=== PATIENT | female | born 1985 | race Caucasian/White ===

== ENCOUNTER 2017-04-06 08:14 | Emergency (ER) | payer MEDICAID, OTHER ==
[~2017-04-06] VITALS: Ht 165.1 cm; Wt 90.3 kg
[2017-04-06 08:16] VITALS: BP 144/84
--- NOTE | 2017-04-06 08:30 | NUR ---
31/F BIB FRIEND FOR MEDICATION REFILL FROM [facility] ; LITHIUM 300 MG PO QID .PT RAN OUT OF THIS MED 5 DAYS. HX OF BIPOLAR, BODERLINE PERSONALITY DISORDER, DEPRESSION, SUBSTANCE ABUSE RECOVERING, MIGRAINE ,ASTHMA. PATIENT DENIES N/V/D; SKIN IS SMALL RASHES TO BOTH ARMS AT THIS TIME. AAOX4 WITH EVEN AND STEADY GAIT; LUNGS CLEAR BL; HR EVEN AND REGULAR; PT DENIES ANY FEVER, CP, SOB, OR COUGH AT THIS TIME; PATIENT STATES PAIN OF 0/10 AT THIS TIME; VSS; PATIENT POSITIONED FOR COMFORT; HOB ELEVATED; BEDRAILS UP X2; BED DOWN. ER MD MADE AWARE OF PT STATUS.
--- NOTE | 2017-04-06 08:30 | NUR ---
Note undone in EDM - 04/06/17 at 0904 by [email or web address] 31/ BIB FRIEND C/O FOR MEDICATION REFILL FROM [facility] ; LITHIUM 300 MG PO QID .PT RAN OUT OF THIS MED 5 DAYS. HX OF BIPOLAR, BODERLINE PERSONALITY DISORDER, DEPRESSION, SUBSTANCE ABUSE RECOVERING, MIGRAINE ,ASTHMA. PATIENT DENIES N/V/D; SKIN IS PINK/WARM/DRY; AAOX4 WITH EVEN AND STEADY GAIT; LUNGS CLEAR BL; HR EVEN AND REGULAR; PT DENIES ANY FEVER, CP, SOB, OR COUGH AT THIS TIME; PATIENT STATES PAIN OF 0/10 AT THIS TIME; VSS; PATIENT POSITIONED FOR COMFORT; HOB ELEVATED; BEDRAILS UP X2; BED DOWN. ER MD MADE AWARE OF PT STATUS.
[2017-04-06] MEDS ORDERED: LITHIUM CARBONATE 300 MG TAB PO SCH ×2 (11:00→11:26)
--- NOTE | 2017-04-06 11:15 | NUR ---
CALLED PHARMACY FOR MEDICINE
[2017-04-06] MEDS ORDERED: LITHIUM CARBONATE 300 MG TAB PO ONE (11:20)
--- NOTE | 2017-04-06 11:20 | NUR ---
Patient appears to be resting comfortably in bed. Vital Signs within normal limits. Respirations even and unlabored.WILL CONTINUE TO MONITOR
[2017-04-06 12:05] VITALS: BP 141/71
--- NOTE | 2017-04-06 12:05 | NUR ---
Patient discharged with v/s stable. Written and verbal after care instructions given and explained. Patient verbalized understanding. Ambulatory with steady gait. All questions addressed prior to discharge. Advised to follow up with PMD.
== END 2017-04-06 12:05 | disposition home or self-care (01) ==
LOC: MED 08:14
DX: F31.9 Bipolar disorder, unspecified (principal); R21 Rash and other nonspecific skin eruption; J45.909 Unspecified asthma, uncomplicated; Z76.0 Encounter for issue of repeat prescription; Z90.49 Acquired absence of other specified parts of digestive tract; Z98.890 Other specified postprocedural states
CPT/HCPCS: 99283

== ENCOUNTER 2018-11-03 09:24 | Emergency (ER) | payer MEDICAID ==
[~2018-11-03] VITALS: Ht 167.6 cm; Wt 100.0 kg
[2018-11-03 09:34] VITALS: BP 126/61
--- NOTE | 2018-11-03 09:37 | NUR ---
PT AMBULATES TO BED 8
--- NOTE | 2018-11-03 09:40 | NUR ---
33 YO F BIB SELF; AMBULATORY W/ STEADY GATE. N/V/D SINCE LAST NIGHT; SKIN IS INTACT, PINK/WARM/DRY; AAOX4, PERRL, WITH EVEN AND STEADY GAIT; LUNGS CLEAR BL, BREATHING UNLABORED; HR EVEN AND REGULAR, BL PERIPHERAL PULSES PRESENT; BS ACTIVE X4, NO TENDERNESS TO PALPATION, NO HEPATOSPLENOMEGALLY PALPATED, RESONANT TO PERCUSSION; PT DENIES ANY FEVER, CP, SOB, OR COUGH AT THIS TIME; PT STATES 9/10 PAIN AT THIS TIME; VSS; PATIENT POSITIONED FOR COMFORT; HOB ELEVATED; BEDRAILS UP X1; BED DOWN. ER MADE AWARE OF PT STATUS. [facility] HX: DENIES RX: DENIES
[2018-11-03 10:03] VITALS: BP 124/62
--- NOTE | 2018-11-03 10:05 | NUR ---
Patient discharged with v/s stable. Written and verbal after care instructions given and explained. Patient alert, oriented and verbalized understanding of instructions. Ambulatory with steady gait. All questions addressed prior to discharge. ID band removed. Patient advised to follow up with PMD. Rx of CIPRO 500MG given. Patient educated on indication of medication including possible reaction and side effects. Opportunity to ask questions provided and answered.
== END 2018-11-03 10:05 | disposition home or self-care (01) ==
LOC: MED 09:24
DX: N30.00 Acute cystitis without hematuria (principal); J45.909 Unspecified asthma, uncomplicated; Z90.49 Acquired absence of other specified parts of digestive tract
CPT/HCPCS: 81002; 81025; 99283

== ENCOUNTER 2018-11-15 08:22 | Emergency (ER) | payer MEDICAID ==
[~2018-11-15] VITALS: Ht 165.1 cm; Wt 100.2 kg
[2018-11-15 08:35] VITALS: BP 100/76
--- NOTE | 2018-11-15 08:39 | NUR ---
PT AMBULATES TO BED 7
--- NOTE | 2018-11-15 08:54 | NUR ---
Patient being evaluated by physician at bedside.
--- NOTE | 2018-11-15 08:55 | NUR ---
33/ F BIB SELF, PRESENTS TO ED WITH C/O BILATERAL UPPER ADBDOMINAL, N/V/D X2 DAYS. PT STATES THAT SHE HAS BEEN SEEN BY HER PRIMARY AND WILL SEE A SPECIALIST NEXT WEEK, BUT PAIN HAS WORSNED THE PAST TWO DAYS . SKIN IS PINK/WARM/DRY; AAOX4 WITH EVEN AND STEADY GAIT; LUNGS CLEAR BL; HR EVEN AND REGULAR; PT DENIES ANY FEVER, CP, SOB, OR COUGH AT THIS TIME. PAIN IS 10/10 UNPROVOKED, STABBING AND CONSTANT. PAIN RADIATES TO BACK AND TO HER PELVIS. PATIENT POSITIONED FOR COMFORT; HOB ELEVATED; BEDRAILS UP X2; BED DOWN. ER MD MADE AWARE OF PT STATUS.
[2018-11-15] MEDS ORDERED: NACL 0.9% 500 ML IV ONE (08:56)
[2018-11-15] MEDS ORDERED: ONDANSETRON 4 MG/2 ML VIAL IVP ONE (09:00)
[2018-11-15] MEDS ORDERED: KETOROLAC 30 MG/ML VIAL IVP ONE (09:00)
[2018-11-15] MEDS ORDERED: PANTOPRAZOLE 40 MG INJ VIAL IVP ONE (09:05)
[2018-11-15 09:31] LABS: BASOPHILS % (AUTO) 0.2 % (0.0-2.0); EOSINOPHILS % (AUTO) 0.3 % (0.0-4.0); HEMATOCRIT 39.3 % (36-48); HEMOGLOBIN 12.8 g/dL (12.0-16.0); LYMPHOCYTES # (AUTO) 0.8 K/uL (2.5-16.5); LYMPHOCYTES % (AUTO) 8.2 % (20.5-51.1); MEAN CORPUSCULAR HEMOGLOBIN 29 pg (27-31); MEAN CORPUSCULAR HGB CONC 33 g/dL (33-37); MEAN CORPUSCULAR VOLUME 88.9 fL (80-94); MONOCYTES # (AUTO) 0.5 K/uL (0.8-1.0); MONOCYTES % (AUTO) 5.1 % (1.7-9.3); NEUTROPHILS # (AUTO) 8.6 K/uL (1.8-7.7); NEUTROPHILS % (AUTO) 86.2 % (42.2-75.2); PLATELET COUNT (AUTO) 149 K/uL (140-450); RED BLOOD CELL COUNT(AUTO) 4.41 MIL/uL (4.20-5.40); RED CELL DISTRIBUTION WIDTH 13.3 % (11.6-13.7); WHITE BLOOD COUNT (AUTO) 9.9 K/uL (4.8-10.8)
[2018-11-15 09:40] LABS: ANION GAP 10.6 (8-16); CARBON DIOXIDE 26.1 mmol/L (21-32); CREATININE 0.6 mg/dL (0.6-1.3); POTASSIUM 3.7 mmol/L (3.5-5.1)
[2018-11-15 09:46] LABS: ALBUMIN 3.3 g/dL (3.4-5.0); TOTAL BILIRUBIN 0.4 mg/dL (0.0-1.0)
[2018-11-15 10:16] VITALS: BP 105/78
--- NOTE | 2018-11-15 10:16 | NUR ---
Patient discharged with v/s stable. Written and verbal after care instructions given and explained. Patient alert, oriented and verbalized understanding of instructions. Ambulatory with steady gait. All questions addressed prior to discharge. ID band removed. Patient advised to follow up with PMD. Rx of PROTONIX, ZOFRAN given. Patient educated on indication of medication including possible reaction and side effects. Opportunity to ask questions provided and answered.
== END 2018-11-15 10:10 | disposition home or self-care (01) ==
LOC: MED 08:22
DX: A08.4 Viral intestinal infection, unspecified (principal); M54.9 Dorsalgia, unspecified; Z90.49 Acquired absence of other specified parts of digestive tract
CPT/HCPCS: 36415; 80053; 81002; 81025; 83690; 85025; 96361; 96374; 96375; 99283; C9113; J1885; J2405; J7030

== ENCOUNTER 2019-08-02 10:20 | Emergency (ER) | payer SELFPAY ==
[~2019-08-02] VITALS: Ht 167.6 cm; Wt 108.9 kg
[2019-08-02 10:32] VITALS: BP 105/70
--- NOTE | 2019-08-02 10:32 | NUR ---
C/O EPIGASTRIC PAIN WITH N/V/D X 4 DAYS. 4 EPISODES OF EMESIS, DENIES BLOOD. PAIN 9/10. BOWEL SOUNDS ACTIVE IN ALL 4 QUADRANTS. ABDOMEN SOFT AND ROUND. AA0X4. BED IS DOWN, LOCKED, BED RAIL X1, ERMD TO SEE PT. PMH- DENIES
--- NOTE | 2019-08-02 10:47 | NUR ---
dr hughes at bedside
[2019-08-02] MEDS ORDERED: NACL 0.9% 1,000 ML IV SCH (10:51)
[2019-08-02] MEDS ORDERED: KETOROLAC 15 MG/ML VIAL IVP ONE (10:55)
[2019-08-02] MEDS ORDERED: FAMOTIDINE 20 MG/2 ML VIAL IVP ONE (10:55)
[2019-08-02] MEDS ORDERED: ONDANSETRON 4 MG/2 ML VIAL IVP ONE (10:55)
--- NOTE | 2019-08-02 11:35 | NUR ---
LAB AT BEDSIDE
--- NOTE | 2019-08-02 11:44 | NUR ---
IV AND MEDICATIONS INSERTED BY SUSAN GARCIA
[2019-08-02 11:53] LABS: BASOPHILS % (AUTO) 0.4 % (0.0-2.0); HEMATOCRIT 41.1 % (36-48); HEMOGLOBIN 13.8 g/dL (12.0-16.0); LYMPHOCYTES # (AUTO) 1.7 K/uL (2.5-16.5); LYMPHOCYTES % (AUTO) 21.5 % (20.5-51.1); MEAN CORPUSCULAR HEMOGLOBIN 29 pg (27-31); MEAN CORPUSCULAR HGB CONC 34 g/dL (33-37); MONOCYTES # (AUTO) 0.4 K/uL (0.8-1.0); MONOCYTES % (AUTO) 4.9 % (1.7-9.3); NEUTROPHILS # (AUTO) 5.7 K/uL (1.8-7.7); NEUTROPHILS % (AUTO) 73.2 % (42.2-75.2); PLATELET COUNT (AUTO) 213 K/uL (140-450); RED BLOOD CELL COUNT(AUTO) 4.73 MIL/uL (4.20-5.40); RED CELL DISTRIBUTION WIDTH 13.6 % (11.6-13.7); WHITE BLOOD COUNT (AUTO) 7.8 K/uL (4.8-10.8)
[2019-08-02 12:04] LABS: ANION GAP 13.5 (8-16); CARBON DIOXIDE 26.4 mmol/L (21-32); CREATININE 0.6 mg/dL (0.6-1.3); POTASSIUM 3.9 mmol/L (3.5-5.1)
[2019-08-02 12:09] LABS: ALBUMIN 3.8 g/dL (3.4-5.0); TOTAL BILIRUBIN 0.4 mg/dL (0.0-1.0)
--- NOTE | 2019-08-02 12:39 | NUR ---
PT SLEEPING IN BED. VSS AT THIS TIME. AA0X4.
[2019-08-02 12:41] LABS: APPEARANCE,URINE CLEAR (CLEAR); BILIRUBIN,URINE 1+ (NEGATIVE); BLOOD, URINE TRACE-I (NEGATIVE); COLOR,URINE YELLOW (YELLOW); LEUKOCYTE ESTERASE ,URINE NEGATIVE (NEGATIVE); NITRITE, URINE NEGATIVE (NEGATIVE); UGLUCOSE NEGATIVE (NEGATIVE)
[2019-08-02 13:47] VITALS: BP 106/66
--- NOTE | 2019-08-02 13:47 | NUR ---
Patient discharged with v/s stable. Written and verbal after care instructions given and explained. Patient alert, oriented and verbalized understanding of instructions. Ambulatory with steady gait. All questions addressed prior to discharge. ID band removed. Patient advised to follow up with PMD. Rx of zofran and pepcid given. Patient educated on indication of medication including possible reaction and side effects. Opportunity to ask questions provided and answered. pt given copy of lab results instructed to follow up with [facility]
== END 2019-08-02 13:47 | disposition home or self-care (01) ==
LOC: MED 10:20
DX: K29.70 Gastritis, unspecified, without bleeding (principal); Z90.49 Acquired absence of other specified parts of digestive tract; Z98.890 Other specified postprocedural states
CPT/HCPCS: 36415; 76705; 80053; 81003; 81025; 83690; 85025; 96361; 96374; 96375; 99284; J1885; J2405; J3490; J7030; Q0092

== ENCOUNTER 2019-10-23 06:26 | Emergency (ER) | payer MEDICAID ==
[~2019-10-23] VITALS: Ht 167.6 cm; Wt 89.8 kg
[2019-10-23 06:28] VITALS: BP 126/77
--- NOTE | 2019-10-23 06:28 | NUR ---
TO BED # 09 AMBULATORY
--- NOTE | 2019-10-23 06:35 | NUR ---
pATIENT RECIEVED AAOX3, SKIN W/D TO TOUCH , CHIEF C/O N/V SINCE YESTERDAY, PT STATES SHE IS BURBING ALOT (IT HAS A METAL TASTE) AND PASSING GAS, "i FEEL REAL BLOATED. LAST TIME VOMITTING WAS AN HOUR AGO. PATIENT PLACED IN A GOWN. URINE COLLECTED. PENDING MD ZAVALETA.
[2019-10-23] MEDS ORDERED: NACL 0.9% 1,000 ML IV SCH (06:54)
[2019-10-23] MEDS ORDERED: ONDANSETRON 4 MG/2 ML VIAL IVP ONE (06:55)
--- NOTE | 2019-10-23 07:12 | NUR ---
REPORT TO AM RADHA WHITE/ YOLI.
--- NOTE | 2019-10-23 07:13 | NUR ---
RECEIVED REPORTED FROM TL GARCIA.
[2019-10-23 07:25] LABS: BASOPHILS % (AUTO) 0.3 % (0.0-2.0); HEMATOCRIT 36.1 % (36-48); HEMOGLOBIN 12.1 g/dL (12.0-16.0); LYMPHOCYTES # (AUTO) 2.8 K/uL (2.5-16.5); LYMPHOCYTES % (AUTO) 38.5 % (20.5-51.1); MEAN CORPUSCULAR HEMOGLOBIN 30 pg (27-31); MEAN CORPUSCULAR HGB CONC 34 g/dL (33-37); MEAN CORPUSCULAR VOLUME 88.7 fL (80-94); MONOCYTES # (AUTO) 0.5 K/uL (0.8-1.0); MONOCYTES % (AUTO) 7.4 % (1.7-9.3); NEUTROPHILS % (AUTO) 53.8 % (42.2-75.2); PLATELET COUNT (AUTO) 193 K/uL (140-450); RED BLOOD CELL COUNT(AUTO) 4.07 MIL/uL (4.20-5.40); RED CELL DISTRIBUTION WIDTH 13.5 % (11.6-13.7); WHITE BLOOD COUNT (AUTO) 7.4 K/uL (4.8-10.8)
[2019-10-23 07:27] LABS: APPEARANCE,URINE HAZY (CLEAR); BILIRUBIN,URINE NEGATIVE (NEGATIVE); BLOOD, URINE 3+ (NEGATIVE); COLOR,URINE YELLOW (YELLOW); LEUKOCYTE ESTERASE ,URINE NEGATIVE (NEGATIVE); NITRITE, URINE NEGATIVE (NEGATIVE); UGLUCOSE NEGATIVE (NEGATIVE)
[2019-10-23 07:49] LABS: RBC,URINE 20-50 /HPF (0-5)
[2019-10-23 07:50] LABS: WBC,URINE 0-5 /HPF (0-5)
[2019-10-23 07:52] LABS: ALBUMIN 3.3 g/dL (3.4-5.0); ANION GAP 10.2 (8-16); CARBON DIOXIDE 27.8 mmol/L (21-32); CREATININE 0.6 mg/dL (0.6-1.3); TOTAL BILIRUBIN 0.1 mg/dL (0.0-1.0)
--- NOTE | 2019-10-23 08:27 | NUR ---
pt taken to ct.
[2019-10-23 10:39] VITALS: BP 118/68
--- NOTE | 2019-10-23 10:39 | NUR ---
Patient discharged with v/s stable. Written and verbal after care instructions given and explained. Patient alert, oriented and verbalized understanding of instructions. Ambulatory with steady gait. All questions addressed prior to discharge. ID band removed. Patient advised to follow up with PMD. Rx of ZOFRAN & NORCO given. Patient educated on indication of medication including possible reaction and side effects. Opportunity to ask questions provided and answered.
== END 2019-10-23 10:39 | disposition home or self-care (01) ==
LOC: MED 06:26
DX: R10.9 Unspecified abdominal pain (principal); R11.2 Nausea with vomiting, unspecified; Z90.49 Acquired absence of other specified parts of digestive tract
CPT/HCPCS: 36415; 74177; 80053; 81001; 83690; 84703; 85025; 87086; 96361; 96374; 99284; J2405; J7030; Q9967

== ENCOUNTER 2019-12-17 11:58 | Emergency (ER) | payer MEDICAID ==
[~2019-12-17] VITALS: Ht 162.6 cm; Wt 102.5 kg
[2019-12-17 12:05] VITALS: BP 114/68
--- NOTE | 2019-12-17 12:12 | NUR ---
AMB TO BED 08, URINE CUP PROVIDED
--- NOTE | 2019-12-17 12:19 | NUR ---
34 YO FEMALE CO UPPER ABD PAIN THAT RADIATES TO FLANKS. PAIN SINCE YESTERDAY. PT STATES THAT SHE DID HAVE N/V/D. PAIN IN 10 THAT RADIATES FROM EPIGASTRIC TO FLANK AREA. NO HEALTH ISSUES AND NO RX. VSS
[2019-12-17] MEDS ORDERED: ONDANSETRON 4 MG/2 ML VIAL IVP ONE (12:25)
[2019-12-17] MEDS ORDERED: KETOROLAC 30 MG/ML VIAL IVP ONE (12:25)
[2019-12-17] MEDS ORDERED: NACL 0.9% 1,000 ML IV ONE (12:25)
[2019-12-17 12:48] LABS: BASOPHILS % (AUTO) 0.5 % (0.0-2.0); HEMATOCRIT 39.4 % (36-48); MEAN CORPUSCULAR HEMOGLOBIN 29 pg (27-31); MEAN CORPUSCULAR HGB CONC 33 g/dL (33-37); MEAN CORPUSCULAR VOLUME 88.7 fL (80-94); MONOCYTES # (AUTO) 0.4 K/uL (0.8-1.0); MONOCYTES % (AUTO) 5.7 % (1.7-9.3); NEUTROPHILS # (AUTO) 4.9 K/uL (1.8-7.7); NEUTROPHILS % (AUTO) 66.8 % (42.2-75.2); PLATELET COUNT (AUTO) 231 K/uL (140-450); RED BLOOD CELL COUNT(AUTO) 4.44 MIL/uL (4.20-5.40); RED CELL DISTRIBUTION WIDTH 13.7 % (11.6-13.7); WHITE BLOOD COUNT (AUTO) 7.3 K/uL (4.8-10.8)
[2019-12-17] MEDS ORDERED: OSELTAMIVIR PHOSPHATE 75 MG CAP PO ONE (13:10)
[2019-12-17 13:12] LABS: ALBUMIN 3.2 g/dL (3.4-5.0); ANION GAP 13.5 (8-16); CARBON DIOXIDE 24.8 mmol/L (21-32); CREATININE 0.6 mg/dL (0.6-1.3); POTASSIUM 4.3 mmol/L (3.5-5.1); TOTAL BILIRUBIN 0.2 mg/dL (0.0-1.0)
[2019-12-17 13:53] VITALS: BP 114/68
--- NOTE | 2019-12-19 08:51 | NUR ---
Late entry. COnfirmed with RN that 0.9 NS IV completed at 1345
== END 2019-12-17 13:50 | disposition home or self-care (01) ==
LOC: MED 11:58
DX: R10.9 Unspecified abdominal pain (principal); J10.1 Influenza due to other identified influenza virus with other respiratory manifestations; R11.2 Nausea with vomiting, unspecified; Z90.49 Acquired absence of other specified parts of digestive tract
CPT/HCPCS: 36415; 80053; 83690; 85025; 87804; 96361; 96374; 96375; 99283; J1885; J2405; J7030

== ENCOUNTER 2020-05-30 08:57 | Emergency (ER) | payer MEDICAID ==
[~2020-05-30] VITALS: Ht 157.5 cm; Wt 106.6 kg
[2020-05-30 09:03] VITALS: BP 136/76
--- NOTE | 2020-05-30 09:08 | NUR ---
Patient ambulated to bed 4 with family. RN evaluating patient at bedside.
--- NOTE | 2020-05-30 09:10 | NUR ---
C/O ABCESS TO RIGHT LATERAL OUTER THIGH POSTERIORLY X 3 DAYS BUT WOKE UP TODAY WITH IT "RUPTURED" AND DRAINING OUT. DENIES INJECTING ANYTHING INTO SKIN. DENIES ANY INJURY. PT UNABLE TO SIT DOWN DUE TO PAIN. DENIES FEVER. HX: MULTIPLE PERSONALITY DISORDER RX: [id number]
--- NOTE | 2020-05-30 09:15 | NUR ---
DR. LOBO EVALUATING PT AT BEDSIDE
[2020-05-30] MEDS ORDERED: MORPHINE SULFATE 10 MG/ML VIAL IM ONE (09:20)
[2020-05-30] MEDS ORDERED: LIDOCAINE 2% 1000 MG/50 ML VIAL INJ ONE (09:20)
[2020-05-30] MEDS ORDERED: HYDROcodone/APAP 10/325 MG 1 TAB TAB PO ONE (09:20)
--- NOTE | 2020-05-30 09:25 | NUR ---
PT STATES HER BROTHER WILL PICK HER UP WHEN DISCHARGED
--- NOTE | 2020-05-30 10:12 | NUR ---
DR. LOBO AT BEDSIDE FOR I&D.
[2020-05-30] MEDS ORDERED: MORPHINE SULFATE 4 MG/ML SYR IM ONE (10:15)
[2020-05-30] MEDS ORDERED: LORazepam 1 MG TAB ONE (10:41)
[2020-05-30] MEDS ORDERED: LORazepam 1 MG TAB PO ONE (10:45)
--- NOTE | 2020-05-30 10:45 | NUR ---
DR. LOBO AT BEDSIDE ATTEMPTING I & D AGAIN
[2020-05-30] MEDS ORDERED: CLINDAMYCIN 600 MG/4 ML VIAL IM ONE (11:10)
[2020-05-30 11:24] VITALS: BP 141/79
--- NOTE | 2020-05-30 11:25 | NUR ---
Patient discharged with v/s stable. Written and verbal after care instructions given and explained. Patient alert, oriented and verbalized understanding of instructions. Ambulatory with steady gait. All questions addressed prior to discharge. ID band removed. Patient advised to follow up with PMD. Rx of keflex, bactrim & tylenol given. Patient educated on indication of medication including possible reaction and side effects. Opportunity to ask questions provided and answered.
== END 2020-05-30 11:25 | disposition home or self-care (01) ==
LOC: MED 08:57
DX: L02.415 Cutaneous abscess of right lower limb (principal)
CPT/HCPCS: 10060; 96372; 99152; 99285; J2001; J2270; J3490